=== PATIENT | male | born 1980 | race Hispanic/Latino ===

== ENCOUNTER 2017-04-09 14:01 | Emergency (ER) | payer BC ==
[2017-04-09 14:35] VITALS: RESP 18
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
[2017-04-09 15:10] LABS: RBC URINE 1 /hpf (0-3); URINE BILIRUBIN NEGATIVE (NEGATIVE); URINE BLOOD NEGATIVE (NEGATIVE); URINE COLOR Yellow (YELLOW); URINE GLUCOSE (UA) NORMAL (Normal); URINE KETONE TRACE mg/dL (NEGATIVE); URINE LEUKOCYTE ESTERASE NEG Leu/uL (Negative); URINE PROTEIN NEGATIVE (NEGATIVE); URINE UROBILINOGEN NORMAL mg/dL (0.2-1.0); WBC URINE 1 /hpf (0-5)
[2017-04-09 16:08] VITALS: BP 146/69; PULSE 76; TEMP 98.3
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
[2017-04-09 16:16] VITALS: O2SAT 99
== END 2017-04-09 17:14 | disposition home or self-care (01) ==
LOC: C.ER 14:01
DX: S39.94XA Unspecified injury of external genitals, initial encounter (principal); Y08.89XA Assault by other specified means, initial encounter; N50.812 Left testicular pain